=== PATIENT | female | born 1995 | race Native Hawaiian/Other Pacific Islander ===

== ENCOUNTER 2018-10-08 21:15 | Emergency (ER) | payer SELFPAY ==
[2018-10-08 22:46] LABS: ABSOLUTE EOSINOPHILS # (AUTO) 0.8 10^3/uL (0.0-0.6); ABSOLUTE LYMPHOCYTES (AUTO) 3.1 10^3/uL (0.5-4.7); ABSOLUTE MONOCYTES (AUTO) 0.5 10^3/uL (0.1-1.4); ABSOLUTE NEUT (AUTO) 4.2 10^3/uL (1.7-8.2); BASOPHILS % (AUTO) 0.6 % (0-2); EOSINOPHILS % (AUTO) 9.3 % (0-6); HEMATOCRIT 42.4 % (36.0-47.0); HEMOGLOBIN 14.3 g/dL (12.0-15.5); LYMPHOCYTES % (AUTO) 35.9 % (13-45); MEAN CORPUSCULAR HGB CONC 33.8 g/dL (32.0-36.0); MEAN CORPUSCULAR VOLUME 83 fl (80-97); MONOCYTES % (AUTO) 5.3 % (3-13); PLATELET COUNT 343 10^3/uL (150-450); RED BLOOD COUNT 5.11 10^6/uL (3.72-5.28); RED CELL DISTRIBUTION WIDTH 13.7 % (11.5-14.0); SEGMENTED NEUTROPHILS % (AUTO) 48.9 % (42-78); TOTAL CELLS COUNTED % (AUTO) 100 %; WHITE BLOOD COUNT 8.5 10^3/uL (4.0-10.5)
[2018-10-08 22:55] LABS: APPEARANCE,URINE SLIGHTLY-CLOUDY; BILIRUBIN,URINE NEGATIVE (NEGATIVE); COLOR,URINE YELLOW; GLUCOSE, URINE NEGATIVE (NEGATIVE); KETONES,URINE NEGATIVE (NEGATIVE); LEUKOCYTE ESTERASE,URINE MODERATE (NEGATIVE); NITRITE,URINE NEGATIVE (NEGATIVE); PROTEIN,URINE 100 mg/dL (NEGATIVE); URINE SPECIFIC GRAVITY 1.025; UROBILINOGEN,URINE NEGATIVE mg/dL (<2.0)
[2018-10-08 23:07] LABS: ALBUMIN 5.3 g/dL (3.5-5.0); ALKALINE PHOSPHATASE 84 U/L (38-126); ANION GAP 14 (5-19); ASPARTATE AMINO TRANSFERASE 46 U/L (14-36); BILIRUBIN,DIRECT 0.2 mg/dL (0.0-0.4); BILIRUBIN,TOTAL 0.3 mg/dL (0.2-1.3); BLOOD UREA NITROGEN 17 mg/dL (7-20); CALCIUM 10.1 mg/dL (8.4-10.2); CARBON DIOXIDE 27 mmol/L (22-30); CHLORIDE 101 mmol/L (98-107); GLUCOSE 101 mg/dL (75-110); TOTAL PROTEIN 9.3 g/dL (6.3-8.2)
--- NOTE | 2018-10-09 00:04 | ER Document Report ---
ED Medical Screen (RME) - General Chief Complaint: Chest Pain Stated Complaint: STOMACH PAIN Time Seen by Provider: 10/08/18 23:58 Mode of Arrival: Wheelchair Information source: Patient Notes: 23-year-old female presented to ED for complaint of left lower rib pain. Patient speaks Chuukese according to the to the man with the patient and her cousin was translating as we do not have this language on the [place]. She states she is from [place]. According to the cousin she is always had pain in this area but it is never been swollen in this area. She states that the patient states she has heart issues where she has a hole in her heart and she used to get monthly shots for the issue. She does not know what the issue is. She states her last menstrual period was last week. She denies any trauma she denies any nausea vomiting or diarrhea she states she is not having trouble breathing but it does hurt when she takes a deep breath. She states she does not smoke drink or use any drugs. Patient is alert oriented and she did answer some questions that I asked with yes and no. On via face time states that the patient does not want Tylenol or Motrin. I asked several times and they stated she did not want Tylenol or Motrin. Patient states she had Excedrin 3 weeks ago and has not had anything since then because they did not have medicine at the house. I have greeted and performed a rapid initial assessment of this patient. A comprehensive ED assessment and evaluation of the patient, analysis of test results and completion of medical decision making process will be conducted by an additional ED providers. Dictation of this chart was performed using voice recognition software; therefore, there may be some unintended grammatical errors. TRAVEL OUTSIDE OF THE [place] IN LAST 30 DAYS: No Physical Exam - Vital signs Vitals: Temp Pulse Resp BP Pulse Ox 98.4 F 105 H 28 H 122/70 97 10/08/18 22:21 10/08/18 22:21 10/08/18 22:21 10/08/18 22:21 10/08/18 22:21 Course - Vital Signs Vital signs: Temp Pulse Resp BP Pulse Ox 98.4 F 105 H 28 H 122/70 97 10/08/18 22:21 10/08/18 22:21 10/08/18 22:21 10/08/18 22:21 10/08/18 22:21 - Laboratory Result Diagrams: 10/08/18 22:10 10/08/18 22:10 Laboratory results interpreted by me: 10/08/18 10/08/18 10/08/18 22:10 22:10 22:10 Eosinophils % 9.3 H Absolute Eosinophils 0.8 H AST 46 H Total Protein 9.3 H Albumin 5.3 H Urine Protein 100 H Urine Blood MODERATE H Ur Leukocyte Esterase MODERATE H
--- NOTE | 2018-10-09 00:50 | RADIOLOGY REPORT (SQ) ---
EXAM DESCRIPTION: XR CHEST 2 VIEWS COMPLETED DATE/TME: 10/08/2018 23:59 CLINICAL HISTORY: 23 years, Female, left lower anterior rib pain Comparison: None FINDINGS: No focal lung consolidation. No pleural effusion. No pneumothorax. Cardiac and mediastinal silhouette is unremarkable. No acute osseous abnormality. Soft tissues are unremarkable. IMPRESSION: No acute findings. No focal lung consolidation.
[2018-10-09] MEDS ORDERED: FENTANYL CITRATE INJ/PF 100 MCG/2 ML AMPUL IV ONE (01:43)
[2018-10-09 02:35] LABS: T.VAGINALIS (WET MOUNT) NO TRICHOMONAS SEEN; YEAST (WET MOUNT) NO YEAST SEEN
[2018-10-09 02:36] LABS: BACTERIA (WET MOUNT) 3+ BACTERIA SEEN; RBCS (WET MOUNT) NO RBCS SEEN; WBCS (WET MOUNT) 3+ WBCS SEEN
[2018-10-09] MEDS ORDERED: MORPHINE SULFATE 10 MG/ML INJ IV ONE (03:33)
--- NOTE | 2018-10-09 03:58 | RADIOLOGY REPORT (SQ) ---
EXAM DESCRIPTION: CT ABDOMEN PELVIS WITH IV CONTRAST COMPLETED DATE/TME: 10/09/2018 01:43 CLINICAL HISTORY: general left sided pain COMPARISON: None Available. TECHNIQUE: CT of the abdomen and pelvis performed following IV administration of 70.2 mL of Omnipaque 350. DLP: 724.34 mGycm FINDINGS: Lung Bases: The visualized lung bases are clear. Bones: No destructive bone lesions identified. Abdomen: Liver: The liver has normal size and density. No intrahepatic mass or biliary dilatation. Gallbladder: No calcified gallstones. Spleen, Pancreas, and Adrenal Glands: The spleen, pancreas, and adrenal glands are unremarkable. Kidneys: The kidneys have normal size and contour without evidence of solid mass or hydronephrosis. Vasculature: The aorta and IVC have normal caliber and position. The portal vein is patent. The proximal visceral and renal arteries are patent. Stomach: The stomach and duodenum have normal course. Other: No free intraperitoneal air. Tiny fat-containing umbilical hernia. No free fluid or lymphadenopathy. Pelvis: Bladder: Urinary bladder is unremarkable. Bowel: No dilated loops of large or small bowel. Appendix: Normal appendix. Pelvis: Uterus is not enlarged. IMPRESSION: 1. No acute inflammatory or obstructive process identified. This exam was performed according to our departmental dose-optimization program, which includes automated exposure control, adjustment of the mA and/or kV according to patient size and/or use of iterative reconstruction technique.
[2018-10-09 04:02] LABS: CHLAM PCR NOT DETECTED (NOT DETECT)
[2018-10-09] MEDS ORDERED: DOXYCYCLINE HYCLATE 100 MG TABLET PO ONE (04:08)
[2018-10-09] MEDS ORDERED: CEFTRIAXONE INJ 250 MG VIAL IM ONE (04:08)
[2018-10-09] MEDS ORDERED: METRONIDAZOLE 500 MG TABLET PO ONE (04:08)
[2018-10-09] MEDS ORDERED: AZITHROMYCIN 250 MG TABLET PO ONE (04:08)
[2018-10-09] MEDS ORDERED: LIDOCAINE 1% INJ-PF (10 MG/ML) 30 ML SDV ONE (04:20)
[2018-10-09 04:54] VITALS: BP 109/80
--- NOTE | 2018-10-09 05:28 | ER Document Report ---
ED General - General Chief Complaint: Chest Pain Stated Complaint: STOMACH PAIN Time Seen by Provider: 10/08/18 23:58 Mode of Arrival: Wheelchair Notes: E provider note: 23-year-old female presented to ED for complaint of left lower rib pain. Patient speaks Chuukese according to the to the man with the patient and her cousin was translating as we do not have this language on the [place]. She states she is from [place]. According to the cousin she is always had pain in this area but it is never been swollen in this area. She states that the patient states she has heart issues where she has a hole in her heart and she used to get monthly shots for the issue. She does not know what the issue is. She states her last menstrual period was last week. She denies any trauma she denies any nausea vomiting or diarrhea she states she is not having trouble breathing but it does hurt when she takes a deep breath. She states she does not smoke drink or use any drugs. Patient is alert oriented and she did answer some questions that I asked with yes and no. On via face time states that the patient does not want Tylenol or Motrin. I asked several times and they stated she did not want Tylenol or Motrin. Patient states she had Excedrin 3 weeks ago and has not had anything since then because they did not have medicine at the house. MY HPI: obtained via language line. Patient states she has had dysuria and vaginal discharge for "over a year." Patient is new to the [place]. Patient states she is staying with a cousin in [place]. Patient is denying any chest pain to me. Is c omplaining of generalized bilateral flank and left lower quadrant pain. Patient's denying any vomiting or nausea or diarrhea. Patient states all of a sudden this evening she developed pain in her left lower quadrant on bilateral flanks. Patient is unable to fully describe what her heart history she has. States she did see her surgical scheduler when she lived in [place]. Patient states she cannot remember the last time she went to her surgical scheduler but feels like it was multiple years ago. TRAVEL OUTSIDE OF THE [place] IN LAST 30 DAYS: No Past Medical History - General Information source: Patient - Social History Smoking Status: Never Smoker Chew tobacco use (# tins/day): No Frequency of alcohol use: None Drug Abuse: None Family History: Reviewed & Not Pertinent Patient has suicidal ideation: No Patient has homicidal ideation: No Renal/ Medical History: Denies: Hx Peritoneal Dialysis Review of Systems - Review of Systems Constitutional: denies: Fever EENT: No symptoms reported Cardiovascular: See HPI Respiratory: See HPI Gastrointestinal: See HPI Genitourinary: See HPI Female Genitourinary: See HPI Musculoskeletal: See HPI Skin: No symptoms reported Hematologic/Lymphatic: No symptoms reported Neurological/Psychological: No symptoms reported Physical Exam - Vital signs Vitals: Temp Pulse Resp BP Pulse Ox 98.4 F 105 H 28 H 122/70 97 10/08/18 22:21 10/08/18 22:21 10/08/18 22:21 10/08/18 22:21 10/08/18 22:21 - Notes Notes: GENERAL: Alert, interacts well. HEAD: Normocephalic, atraumatic. EYES: Pupils equal, round, and reactive to light. Extraocular movements intact. ENT: Oral mucosa moist, tongue midline. NECK: Full range of motion. Supple. Trachea midline. LUNGS: Clear to auscultation bilaterally, no wheezes, rales, or rhonchi. No respiratory distress. HEART: Regular rate and rhythm. No murmur ABDOMEN: Soft, generalized tenderness left upper quadrant, left lower quadrant. Non-distended. Bowel sounds present in all 4 quadrants. EXTREMITIES: Moves all 4 extremities spontaneously. No edema, normal radial and dorsalis pedis pulses bilaterally. No cyanosis. BACK: no cervical, thoracic, lumbar midline tenderness. No saddle anesthesia, normal distal neurovascular exam. CVA tenderness noted bilaterally. NEUROLOGICAL: Alert and oriented x3. Normal speech. cranial nerves II through XII grossly intact PSYCH: Normal affect, normal mood. SKIN: Warm, dry, normal turgor. No rashes or lesions noted. Course - Re-evaluation Re-evalutation: 10/09/18 06:10 Laboratory 10/08/18 10/08/18 10/08/18 22:10 22:10 22:10 WBC 8.5 RBC 5.11 Hgb 14.3 Hct 42.4 MCV 83 MCH 28.0 MCHC 33.8 RDW 13.7 Plt Count 343 Seg Neutrophils % 48.9 Lymphocytes % 35.9 Monocytes % 5.3 Eosinophils % 9.3 H Basophils % 0.6 Absolute Neutrophils 4.2 Absolute Lymphocytes 3.1 Absolute Monocytes 0.5 Absolute Eosinophils 0.8 H Absolute Basophils 0.0 Sodium 141.5 Potassium 4.0 Chloride 101 Carbon Dioxide 27 Anion Gap 14 BUN 17 Creatinine 0.79 Est GFR ( Amer) > 60 Est GFR (Non-Af Amer) > 60 Glucose 101 Calcium 10.1 Total Bilirubin 0.3 Direct Bilirubin 0.2 Neonat Total Bilirubin Not Reportable Neonat Direct Bilirubin Not Reportable Neonat Indirect Bili Not Reportable AST 46 H ALT 36 Alkaline Phosphatase 84 Total Protein 9.3 H Albumin 5.3 H Lipase 90.7 Urine Color YELLOW Urine Appearance SLIGHTLY-CLOUDY Urine pH 6.0 Ur Specific [place] 1.025 Urine Protein 100 H Urine Glucose (UA) NEGATIVE Urine Ketones NEGATIVE Urine Blood MODERATE H Urine Nitrite NEGATIVE Urine Bilirubin NEGATIVE Urine Urobilinogen NEGATIVE Ur Leukocyte Esterase MODERATE H Urine WBC (Auto) 38 Urine RBC (Auto) 25 Urine Bacteria (Auto) TRACE Squamous Epi Cells Auto 2 Urine Mucus (Auto) OCC Urine Ascorbic Acid NEGATIVE Urine HCG, Qual NEGATIVE Bacteria (Wet Prep) Trichomonas (Wet Prep) Vaginal WBC Vaginal RBC Vaginal Yeast Chlamydia DNA (PCR) N.gonorrhoeae DNA (PCR) 10/09/18 10/09/18 01:37 01:37 WBC RBC Hgb Hct MCV MCH MCHC RDW Plt Count Seg Neutrophils % Lymphocytes % Monocytes % Eosinophils % Basophils % Absolute Neutrophils Absolute Lymphocytes Absolute Monocytes Absolute Eosinophils Absolute Basophils Sodium Potassium Chloride Carbon Dioxide Anion Gap BUN Creatinine Est GFR ( Amer) Est GFR (Non-Af Amer) Glucose Calcium Total Bilirubin Direct Bilirubin Neonat Total Bilirubin Neonat Direct Bilirubin Neonat Indirect Bili AST ALT Alkaline Phosphatase Total Protein Albumin Lipase Urine Color Urine Appearance Urine pH Ur Specific [place] Urine Protein Urine Glucose (UA) Urine Ketones Urine Blood Urine Nitrite Urine Bilirubin Urine Urobilinogen Ur Leukocyte Esterase Urine WBC (Auto) Urine RBC (Auto) Urine Bacteria (Auto) Squamous Epi Cells Auto Urine Mucus (Auto) Urine Ascorbic Acid Urine HCG, Qual Bacteria (Wet Prep) 3+ BACTERIA SEEN Trichomonas (Wet Prep) NO TRICHOMONAS SEEN Vaginal WBC 3+ WBCS SEEN Vaginal RBC NO RBCS SEEN Vaginal Yeast NO YEAST SEEN Chlamydia DNA (PCR) NOT DETECTED N.gonorrhoeae DNA (PCR) NOT DETECTED Chest X-Ray 10/08/18 23:59 IMPRESSION: No acute findings. No focal lung consolidation. Abdomen/Pelvis CT 10/09/18 01:43 IMPRESSION: 1. No acute inflammatory or obstructive process identified. This exam was performed according to our departmental dose-optimization program, which includes automated exposure control, adjustment of the mA and/or kV according to patient size and/or use of iterative reconstruction technique. Patient's physical exam reveals no pelvic pain. His left lower quadrant left upper quadrant. After treatments in the emergency department patient overall feels better. Patient's pelvic exam, chaperoned by Dian MORAES revealed malodorous yellow discharge in the cul-de-sac with cervical motion tenderness, no adnexal tenderness noted bilaterally. We will treat the patient for pelvic inflammatory disease with a urinary tract infection. Urine sent for culture. CT shows no acute inflammatory processes. Again used language line court interpreter to discuss with patient diagnosis and need for antibiotics for the next 2 weeks. At this time will discharge with return precautions and follow-up recommendations. Verbal discharge instructions given a the bedside and opportunity for questions given. Medication warnings reviewed. Patient is in agreement with this plan and has verbalized understanding of return precautions and the need for primary care follow-up in the next 24-72 hours. This medical record was dictated with voice recognizing software. There may be grammatical, syntax errors that are unintended. 10/09/18 06:16 EKG shows sinus tachycardia at a rate of 104, QTc 463, no ST segment elevations or depressions. My physical exam HPI with dental tech line reveals no pain in her chest. - Vital Signs Vital signs: Temp Pulse Resp BP Pulse Ox 98.6 F 87 16 109/80 99 10/09/18 04:53 10/09/18 04:53 10/09/18 04:53 10/09/18 04:53 10/09/18 04:53 - Laboratory Result Diagrams: 10/08/18 22:10 10/08/18 22:10 Laboratory results interpreted by me: 10/08/18 10/08/18 10/08/18 22:10 22:10 22:10 Eosinophils % 9.3 H Absolute Eosinophils 0.8 H AST 46 H Total Protein 9.3 H Albumin 5.3 H Urine Protein 100 H Urine Blood MODERATE H Ur Leukocyte Esterase MODERATE H Discharge - Discharge Clinical Impression: Pelvic inflammatory disease Urinary tract infection Qualifiers: Urinary tract infection type: acute cystitis Hematuria presence: with hematuria Qualified Code(s): N30.01 - Acute cystitis with hematuria Condition: Stable Disposition: HOME, SELF-CARE Instructions: Urinary Tract Infection ([facility]), Cephalexin ([facility]), Pelvic Inflammatory Disease ([facility]) Additional Instructions: As we discussed you have been seen and treated in the emergency department for a pelvic inflammatory disease as well as a urinary tract infection. These make sure you are taking antibiotics as prescribed. Please also make sure you are drinking plenty of fluids and staying well-hydrated. Please follow-up with a primary care provider in the next 24 to 48 hours, phone numbers will be provided in this packet. Please also return to the emergency room for any further concerns. Prescriptions: Cephalexin Monohydrate [Keflex 500 mg Capsule] 500 mg PO BID 7 Days #14 capsule Doxycycline Hyclate 100 mg PO BID 14 Days capsule Metronidazole [Flagyl 500 mg Tablet] 500 mg PO BID 14 Days tablet Referrals: [facility] [Provider Group] - Follow up as needed [facility] [Provider Group] - Follow up as needed
--- NOTE | 2018-10-09 09:45 | EKG REPORT ---
SEVERITY:- OTHERWISE NORMAL ECG - SINUS TACHYCARDIA : Confirmed by: Yosi Fernández 09-Oct-2018 09:44:32
== END 2018-10-09 06:00 | disposition home or self-care (01) ==
LOC: ER 21:15
DX: N73.9 Female pelvic inflammatory disease, unspecified (principal); N30.01 Acute cystitis with hematuria; R07.9 Chest pain, unspecified; R07.81 Pleurodynia; R10.32 Left lower quadrant pain; R10.12 Left upper quadrant pain
CPT/HCPCS: 93005; 99285; 96372; 96374; 96375; 36415; 87086; 87210; 83690; 85025; 81025; 80053; 81001; 87491; 87591; 71046; 74177; 93010; J3010; J3490; J2270; J0696

== ENCOUNTER 2018-12-24 16:16 | Emergency (ER) | payer SELFPAY ==
[2018-12-24 16:54] LABS: ABSOLUTE EOSINOPHILS # (AUTO) 1.6 10^3/uL (0.0-0.6); ABSOLUTE LYMPHOCYTES (AUTO) 2.4 10^3/uL (0.5-4.7); ABSOLUTE MONOCYTES (AUTO) 0.3 10^3/uL (0.1-1.4); ABSOLUTE NEUT (AUTO) 2.8 10^3/uL (1.7-8.2); BASOPHILS % (AUTO) 0.6 % (0-2); EOSINOPHILS % (AUTO) 22.9 % (0-6); HEMATOCRIT 43.1 % (36.0-47.0); HEMOGLOBIN 14.4 g/dL (12.0-15.5); LYMPHOCYTES % (AUTO) 33.8 % (13-45); MEAN CORPUSCULAR HEMOGLOBIN 28.5 pg (27.0-33.4); MEAN CORPUSCULAR HGB CONC 33.3 g/dL (32.0-36.0); MEAN CORPUSCULAR VOLUME 86 fl (80-97); MONOCYTES % (AUTO) 3.6 % (3-13); PLATELET COUNT 314 10^3/uL (150-450); RED BLOOD COUNT 5.04 10^6/uL (3.72-5.28); RED CELL DISTRIBUTION WIDTH 14.2 % (11.5-14.0); SEGMENTED NEUTROPHILS % (AUTO) 39.1 % (42-78); TOTAL CELLS COUNTED % (AUTO) 100 %
[2018-12-24 17:18] LABS: ALBUMIN 4.9 g/dL (3.5-5.0); ALKALINE PHOSPHATASE 86 U/L (38-126); ANION GAP 12 (5-19); ASPARTATE AMINO TRANSFERASE 43 U/L (14-36); BILIRUBIN,DIRECT 0.2 mg/dL (0.0-0.4); BILIRUBIN,TOTAL 0.4 mg/dL (0.2-1.3); BLOOD UREA NITROGEN 11 mg/dL (7-20); CALCIUM 9.7 mg/dL (8.4-10.2); CARBON DIOXIDE 26 mmol/L (22-30); CHLORIDE 107 mmol/L (98-107); CREATINE KINASE 113 U/L (30-135); GLUCOSE 94 mg/dL (75-110); POTASSIUM 4.1 mmol/L (3.6-5.0); TOTAL PROTEIN 9.2 g/dL (6.3-8.2)
[2018-12-24 17:23] LABS: APPEARANCE,URINE CLEAR; COLOR,URINE COLORLESS; GLUCOSE, URINE NEGATIVE (NEGATIVE)
[2018-12-24 17:24] LABS: BILIRUBIN,URINE NEGATIVE (NEGATIVE); KETONES,URINE NEGATIVE (NEGATIVE); LEUKOCYTE ESTERASE,URINE TRACE (NEGATIVE); NITRITE,URINE NEGATIVE (NEGATIVE); PROTEIN,URINE NEGATIVE (NEGATIVE); URINE SPECIFIC GRAVITY 1.002; UROBILINOGEN,URINE NEGATIVE mg/dL (<2.0)
[2018-12-24 17:30] LABS: CREATINE KINASE MB 0.75 ng/mL (<4.55)
[2018-12-24 17:35] LABS: TROPONIN I < 0.012 ng/mL
--- NOTE | 2018-12-24 18:10 | RADIOLOGY REPORT (SQ) ---
EXAM DESCRIPTION: CHEST SINGLE VIEW COMPLETED DATE/TIME: 12/24/2018 5:51 pm REASON FOR STUDY: FELL, chest pain and rib pain COMPARISON: 10/09/2018 EXAM PARAMETERS: NUMBER OF VIEWS: One view. TECHNIQUE: Single frontal radiographic view of the chest acquired. RADIATION DOSE: NA LIMITATIONS: None. FINDINGS: LUNGS AND PLEURA: No opacities, masses or pneumothorax. No pleural effusion. MEDIASTINUM AND HILAR STRUCTURES: No masses. Contour normal. HEART AND VASCULAR STRUCTURES: Heart normal in size. Normal vasculature. BONES: No acute findings. HARDWARE: None in the chest. OTHER: No other significant finding. IMPRESSION: NO ACUTE RADIOGRAPHIC FINDING IN THE CHEST. TECHNICAL DOCUMENTATION: JOB ID: [id number] [employer]- All Rights Reserved Reading location - IP/workstation name: [email or web address]
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
--- NOTE | 2018-12-24 19:48 | EKG REPORT ---
SEVERITY:- NORMAL ECG - SINUS RHYTHM : Confirmed by: Billy Hale MD 24-Dec-2018 19:46:49
[2018-12-24] MEDS ORDERED: ACETAMINOPHEN 325 MG TABLET PO ONE (19:51)
[2018-12-24] MEDS ORDERED: ONDANSETRON HCL INJ/PF 4 MG/2 ML SDV IV ONE (19:51)
[2018-12-24] MEDS ORDERED: NORMAL SALINE 500 ML IV ONE (19:55)
[2018-12-24 20:14] LABS: URINE AMPHETAMINES SCREEN NEGATIVE; URINE BARBITURATES SCREEN NEGATIVE; URINE BENZODIAZEPINES SCREEN NEGATIVE; URINE COCAINE SCREEN NEGATIVE; URINE MARIJUANA (THC) SCREEN NEGATIVE; URINE METHADONE SCREEN NEGATIVE; URINE PHENCYCLIDINE SCREEN NEGATIVE
--- NOTE | 2018-12-24 21:20 | RADIOLOGY REPORT (SQ) ---
EXAM DESCRIPTION: CT CERVICAL SPINE WITHOUT IV CONTRAST COMPLETED DATE/TME: 12/24/2018 19:53 CLINICAL HISTORY: 24 years, Female, Pain This exam was performed according to our departmental dose-optimization program which includes automated exposure control, adjustment of the mA and/or kVp according to patient size and/or use of iterative reconstruction technique where applicable. FINDINGS: Vertebral body heights are intact. Alignment is intact. No subluxation. No significant prevertebral soft tissue swelling. Facets are normally aligned. The odontoid process is intact. IMPRESSION: No cervical fracture or subluxation.
--- NOTE | 2018-12-24 21:21 | RADIOLOGY REPORT (SQ) ---
EXAM DESCRIPTION: CT HEAD WITHOUT IV CONTRAST COMPLETED DATE/TME: 12/24/2018 19:53 CLINICAL HISTORY: 24 years, Female, Pain This exam was performed according to our departmental dose-optimization program which includes automated exposure control, adjustment of the mA and/or kVp according to patient size and/or use of iterative reconstruction technique where applicable. FINDINGS: No acute intracranial hemorrhage, mass effect or midline shift. No extra-axial fluid collections. Ventricles and subarachnoid spaces are preserved. Rojas-white matter differentiation is preserved. Visualized paranasal sinuses and the mastoid air cells are clear. The skull is intact. IMPRESSION: No acute intracranial hemorrhage.
--- NOTE | 2018-12-24 21:24 | RADIOLOGY REPORT (SQ) ---
EXAM DESCRIPTION: CT CHEST WITH IV CONTRAST COMPLETED DATE/TME: 12/24/2018 19:54 CLINICAL HISTORY: 24 years, Female, Pain This exam was performed according to our departmental dose-optimization program which includes automated exposure control, adjustment of the mA and/or kVp according to patient size and/or use of iterative reconstruction technique where applicable. FINDINGS: Aorta is within normal limits with no aneurysm or dissection. No significant mediastinal, hilar or axillary lymphadenopathy. No pleural or pericardial effusion. Evaluation of the lung parenchyma demonstrates trachea and major airways to be patent. No suspicious lung nodules or masses. No consolidations. No pneumothorax. The ribs are intact. Thoracic spine is intact. IMPRESSION: No acute traumatic findings.
--- NOTE | 2018-12-25 01:07 | RADIOLOGY REPORT (SQ) ---
CLINICAL HISTORY: 24 years, Female, Pain COMPARISON: None. TECHNIQUE: Images stored on PACS. All CT scanners at this facility use dose modulation, iterative reconstruction, and/or weight based dosing when appropriate to reduce radiation dose to as low as reasonably achievable (ALARA). [facility]: Dose Right [facility]: CareDose [facility]: Dose Right [facility]: Teradose 4D [facility]: [employer] LIMITATIONS: None. FINDINGS: IMPRESSION: EXAM DESCRIPTION: CT ABDOMEN PELVIS WITH IV CONTRAST COMPLETED DATE/TME: 12/24/2018 19:53 CLINICAL HISTORY: 24 years Female Pain COMPARISON: 10/26/2018. TECHNIQUE: Contiguous axial images obtained through the abdomen and pelvis following IV contrast. Reformatted images obtained. This exam was performed according to our department optimization program which includes automated exposure control, adjustment of the mA and/or kv according to patient size and/or use of iterative reconstruction technique. FINDINGS: Fatty infiltration of the liver. The spleen and pancreas appear unremarkable. No adrenal masses. The kidneys appear unremarkable. No hydronephrosis. The gallbladder is visualized. No aneurysmal dilatation of the aorta. No bowel obstruction. The appendix is unremarkable. No significant free fluid noted. IMPRESSION: No acute abnormality is identified. TECHNICAL DOCUMENTATION: Quality ID # [id number]: Final reports with documentation of one or more dose reduction techniques (e.g., Automated exposure control, adjustment of the mA and/or kV according to patient size, use of iterative reconstruction technique) copyright 2011 [employer]- All Rights Reserved
[2018-12-25 02:05] VITALS: BP 105/68
== END 2018-12-25 02:50 | disposition home or self-care (01) ==
LOC: ER 16:16
DX: R55 Syncope and collapse (principal); G44.1 Vascular headache, not elsewhere classified; R10.30 Lower abdominal pain, unspecified; R11.2 Nausea with vomiting, unspecified; R07.81 Pleurodynia; M54.5 Low back pain; R10.811 Right upper quadrant abdominal tenderness; R10.813 Right lower quadrant abdominal tenderness; R10.814 Left lower quadrant abdominal tenderness; R01.1 Cardiac murmur, unspecified; R06.82 Tachypnea, not elsewhere classified
CPT/HCPCS: 93005; 99285; 96361; 96374; 36415; 82553; 82550; 83690; 85025; 81025; 80053; 81001; 84484; 80307; 71045; 70450; 71260; 72125; 74177; 93010; J2405; J7040